=== PATIENT | female | born 1995 | race Caucasian/White ===

== ENCOUNTER 2022-02-01 15:47 | Emergency (ER) | payer BC ==
[~2022-02-01] VITALS: Ht 154.9 cm; Wt 70.5 kg
[2022-02-01] MEDS ORDERED: ondansetron/PF 4mg/2ml inj IV ONE (17:35)
[2022-02-01] MEDS ORDERED: LIDOcaine Viscous 15ml cup MM ONE (17:35)
[2022-02-01] MEDS ORDERED: famotidine/PF 10 mg/ml inj IV ONE (17:35)
[2022-02-01] MEDS ORDERED: normal saline 1000ml 1,000 ML IV ONE (17:35)
[2022-02-01] MEDS ORDERED: mag hydrox/Alum hydrox/simeth 30ml oral suspension PO ONE (17:35)
[2022-02-01] MEDS ORDERED: pantoprazole 40 MG vial IV ONE ×3 (17:35→18:35)
[2022-02-01 17:55] LABS: BASOPHILS % (AUTO) 0.4 % (0-1); EOSINOPHILS # (AUTO) 0.1 X10'3 (0-0.9); EOSINOPHILS % (AUTO) 1.4 % (0-6); HEMOGLOBIN 14.6 g/dl (12.0-16.0); LYMPHOCYTES # (AUTO) 2.1 X10'3 (1.1-4.8); LYMPHOCYTES % (AUTO) 23.1 % (21-51); MEAN CORPUSCULAR HEMOGLOBIN 30.9 PG (27.0-31.0); MEAN CORPUSCULAR HGB CONC 33.1 g/dL (33.0-36.5); MEAN CORPUSCULAR VOLUME 93.3 FL (78-98); MEAN PLATELET VOLUME 7.6 FL (7.4-10.4); MONOCYTES # (AUTO) 0.5 X10'3 (0-0.9); MONOCYTES % (AUTO) 5.1 % (2-12); NEUTROPHILS # (AUTO) 6.4 X10'3 (1.8-7.7); PLATELET COUNT 330 X10'3 (140-440); RED BLOOD COUNT 4.72 X10'6 (4.20-5.60); RED CELL DISTRIBUTION WIDTH 12.1 % (11.5-14.5); WHITE BLOOD COUNT 9.1 X10'3 (4.5-11.0)
[2022-02-01 17:57] LABS: ALANINE AMINOTRANSFERASE 31 U/L (12-78); ALBUMIN 4.6 G/DL (3.4-5.0); ALBUMIN/GLOBULIN RATIO 1.3 (1.1-1.5); ALKALINE PHOSPHATASE 104 IU/L (46-116); ANION GAP 11 (8-16); ASPARTATE AMINO TRANSFERASE 19 U/L (10-37); BILIRUBIN,TOTAL 0.3 MG/DL (0.1-1.0); BLOOD UREA NITROGEN 11 MG/DL (7-18); BUN/CREATININE RATIO 12.4 (6.6-38.0); CALCIUM 9.2 MG/DL (8.5-10.1); CHLORIDE 106 MMOL/L (99-107); CREATININE 0.89 MG/DL (0.40-0.90); GLUCOSE 94 MG/DL (70-104); LIPASE 118 U/L (73-393); SODIUM 140 MMOL/L (135-145); TOTAL CARBON DIOXIDE 23.4 MMOL/L (24-32); TOTAL PROTEIN 8.2 G/DL (6.4-8.2); eGFR 76 ML/MIN
[2022-02-01] MEDS ORDERED: pantoprazole 40 MG/NS 100ML add-vantage BAG IV ONE (18:25)
[2022-02-01] MEDS ORDERED: pantoprazole 40MG/NS 100ML BAG 100 ML IV ONE (18:30)
[2022-02-01 18:38] VITALS: BP 110/61
[2022-02-01] MEDS ORDERED: PANT-47 PO (18:39)
[2022-02-01] MEDS ORDERED: ONDA4TAB12 PO (18:39)
== END 2022-02-01 19:10 | disposition home or self-care (01) ==
LOC: VAS 15:48
DX: K29.00 Acute gastritis without bleeding (principal)
CPT/HCPCS: 36415; 80053; 83690; 85025; 96361; 96374; 96375; 99284; C9113; J2405; J3490; J7030

== ENCOUNTER 2022-12-17 14:34 | Emergency (ER) | payer BC ==
[~2022-12-17] VITALS: Ht 157.5 cm; Wt 66.4 kg
[~2022-12-17 14:34] MED LIST: ONDA4TAB12 PO; PANT-47 PO
[2022-12-17 15:06] LABS: BASOPHILS % (AUTO) 0.5 % (0-1); EOSINOPHILS % (AUTO) 0.7 % (0-6); HEMATOCRIT 42.4 % (35.0-45.0); HEMOGLOBIN 14.3 g/dl (12.0-16.0); LYMPHOCYTES % (AUTO) 16.6 % (21-51); MEAN CORPUSCULAR HGB CONC 33.8 g/dL (33.0-36.5); MEAN CORPUSCULAR VOLUME 94.8 FL (78-98); MEAN PLATELET VOLUME 8.3 FL (7.4-10.4); MONOCYTES # (AUTO) 0.4 X10'3 (0-0.9); MONOCYTES % (AUTO) 6.9 % (2-12); NEUTROPHILS # (AUTO) 4.5 X10'3 (1.8-7.7); NEUTROPHILS % (AUTO) 75.3 % (42-75); PLATELET COUNT 254 X10'3 (140-440); RED BLOOD COUNT 4.48 X10'6 (4.20-5.60); RED CELL DISTRIBUTION WIDTH 12.5 % (11.5-14.5)
[2022-12-17 15:10] LABS: CLARITY,URINE CLOUDY (Clear); COLOR,URINE YELLOW (Yellow); GLUCOSE, URINE NEGATIVE (Neg); KETONES,URINE NEGATIVE (Neg); LEUKOCYTE ESTERASE ,URINE NEGATIVE (Neg); NITRITES, URINE NEGATIVE (Neg); OCCULT BLOOD,URINE NEGATIVE (Neg); PH,URINE 7.5 (4.8-8.0); PROTEIN,URINE NEGATIVE (Neg); URINE HCG NEGATIVE (NEG); UROBILINOGEN,URINE 0.2 E.U/dL (0.2-1.0)
[2022-12-17 15:12] LABS: UA COLLECTION TYPE CLN CATCH MIDSTREAM
[2022-12-17 15:23] LABS: ALANINE AMINOTRANSFERASE 19 U/L (12-78); ALBUMIN 4.4 G/DL (3.4-5.0); ALBUMIN/GLOBULIN RATIO 1.5 (1.1-1.5); ALKALINE PHOSPHATASE 118 IU/L (46-116); ANION GAP 11 (8-16); ASPARTATE AMINO TRANSFERASE 20 U/L (10-37); BILIRUBIN,TOTAL 0.4 MG/DL (0.1-1.0); BLOOD UREA NITROGEN 9 MG/DL (7-18); BUN/CREATININE RATIO 8.5 (10.0-20.0); CHLORIDE 106 MMOL/L (99-107); CREATININE 1.06 MG/DL (0.40-0.90); GLUCOSE 101 MG/DL (70-104); LIPASE 87 U/L (73-393); SODIUM 141 MMOL/L (135-145); TOTAL CARBON DIOXIDE 24.2 MMOL/L (24-32); TOTAL PROTEIN 7.4 G/DL (6.4-8.2); eGFR 61 ML/MIN
[2022-12-17 15:34] LABS: MUCUS STRANDS FEW /LPF (Neg); SQUAMOUS EPITHELIAL CELL,UR FEW /LPF (FEW); TRANSITIONAL EPI CELLS,URINE MODERATE /HPF
[2022-12-17 15:35] LABS: AMORPHOUS PHOSPHATES 2+; BACTERIA,URINE FEW /HPF (Neg); RBC,URINE 0-2 /HPF (0-2); WBC,URINE 0-4 /HPF (0-4)
[2022-12-17] MEDS ORDERED: ONDA8TAB13 PO (18:08)
[2022-12-17] MEDS ORDERED: LIDOcaine Viscous 15ml cup MM ONE (18:10)
[2022-12-17] MEDS ORDERED: pantoprazole 40 MG vial IV ONE (18:10)
[2022-12-17] MEDS ORDERED: normal saline 1000ML IV soln IVB ONE (18:10)
[2022-12-17] MEDS ORDERED: mag hydrox/Alum hydrox/simeth 30ml oral suspension PO ONE (18:10)
[2022-12-17] MEDS ORDERED: LORazepam 2 mg/ml vial IV ONE (18:10)
[2022-12-17] MEDS ORDERED: ondansetron/PF 4mg/2ml inj IV ONE (18:10)
[2022-12-17] MEDS ORDERED: pantoprazole 40MG/NS 100ML BAG 100 ML IV ONE (18:50)
[2022-12-17 19:30] VITALS: BP 104/73
== END 2022-12-17 21:22 | disposition home or self-care (01) ==
LOC: ER 14:34
DX: K52.9 Noninfective gastroenteritis and colitis, unspecified (principal); K31.84 Gastroparesis; E86.0 Dehydration; K21.9 Gastro-esophageal reflux disease without esophagitis
CPT/HCPCS: 36415; 80053; 81001; 81025; 83690; 85025; 96365; 96375; 99284; C9113; J2060; J2405; J7030

== ENCOUNTER 2022-12-22 11:57 | Emergency (ER) | payer BC ==
[~2022-12-22] VITALS: Ht 157.5 cm; Wt 63.6 kg
[~2022-12-22 11:57] MED LIST changes: +ONDA8TAB13 PO
[2022-12-22] MEDS ORDERED: normal saline 1000ML IV soln IVB ONE (14:05)
[2022-12-22] MEDS ORDERED: ondansetron/PF 4mg/2ml inj IV ONE (14:05)
[2022-12-22] MEDS ORDERED: pantoprazole 40mg Tablet.DR PO ONE (14:05)
[2022-12-22 14:27] LABS: BASOPHILS % (AUTO) 0.5 % (0-1); EOSINOPHILS % (AUTO) 0.6 % (0-6); HEMOGLOBIN 15.1 g/dl (12.0-16.0); LYMPHOCYTES # (AUTO) 1.6 X10'3 (1.1-4.8); LYMPHOCYTES % (AUTO) 23.1 % (21-51); MEAN CORPUSCULAR HEMOGLOBIN 32.6 PG (27.0-31.0); MEAN CORPUSCULAR HGB CONC 34.3 g/dL (33.0-36.5); MEAN CORPUSCULAR VOLUME 95.1 FL (78-98); MEAN PLATELET VOLUME 8.6 FL (7.4-10.4); MONOCYTES # (AUTO) 0.4 X10'3 (0-0.9); MONOCYTES % (AUTO) 5.3 % (2-12); NEUTROPHILS # (AUTO) 4.8 X10'3 (1.8-7.7); NEUTROPHILS % (AUTO) 70.5 % (42-75); PLATELET COUNT 253 X10'3 (140-440); RED BLOOD COUNT 4.62 X10'6 (4.20-5.60); RED CELL DISTRIBUTION WIDTH 12.5 % (11.5-14.5); WHITE BLOOD COUNT 6.9 X10'3 (4.5-11.0)
[2022-12-22 14:34] LABS: ALANINE AMINOTRANSFERASE 25 U/L (12-78); ALBUMIN 4.8 G/DL (3.4-5.0); ALBUMIN/GLOBULIN RATIO 1.5 (1.1-1.5); ALKALINE PHOSPHATASE 127 IU/L (46-116); ANION GAP 13 (8-16); ASPARTATE AMINO TRANSFERASE 25 U/L (10-37); BILIRUBIN,TOTAL 0.4 MG/DL (0.1-1.0); BLOOD UREA NITROGEN 12 MG/DL (7-18); BUN/CREATININE RATIO 11.4 (10.0-20.0); CALCIUM 9.5 MG/DL (8.5-10.1); CHLORIDE 104 MMOL/L (99-107); CREATININE 1.05 MG/DL (0.40-0.90); GLUCOSE 103 MG/DL (70-104); SODIUM 138 MMOL/L (135-145); TOTAL CARBON DIOXIDE 21.2 MMOL/L (24-32); TOTAL PROTEIN 7.9 G/DL (6.4-8.2); eGFR 62 ML/MIN
--- NOTE | 2022-12-22 15:33 | NUR ---
RN EDUCATED PT WHEN SHE IS ABLE TO URINATE TO NOTIFY THE RN SO THAT URINE MAY BE COLLECTED.
[2022-12-22 16:10] LABS: URINE HCG NEGATIVE (NEG)
--- NOTE | 2022-12-22 16:10 | NUR ---
RN PROVIDED CRACKERS AND WATER FOR ABRAHAM MCCRACKEN.
[2022-12-22 16:38] LABS: CLARITY,URINE SLIGHTLY CLOUDY (Clear); COLOR,URINE YELLOW (Yellow); GLUCOSE, URINE NEGATIVE (Neg); KETONES,URINE NEGATIVE (Neg); LEUKOCYTE ESTERASE ,URINE NEGATIVE (Neg); NITRITES, URINE NEGATIVE (Neg); OCCULT BLOOD,URINE NEGATIVE (Neg); PROTEIN,URINE NEGATIVE (Neg); UROBILINOGEN,URINE 0.2 E.U/dL (0.2-1.0)
[2022-12-22 16:41] LABS: UA COLLECTION TYPE CLN CATCH MIDSTREAM
[2022-12-22 16:50] LABS: SQUAMOUS EPITHELIAL CELL,UR MANY /LPF (FEW)
[2022-12-22 16:52] LABS: BACTERIA,URINE 2+ /HPF (Neg); RBC,URINE NONE SEEN /HPF (0-2); WBC,URINE 0-4 /HPF (0-4)
[2022-12-22] MEDS ORDERED: haloperidol lactate 5mg/ml inj IM ONE (17:10)
[2022-12-22] MEDS ORDERED: digoxin 250mcg/ml 2ml ampule IV ONE (17:30)
--- NOTE | 2022-12-22 17:30 | NUR ---
Francisco starr in [facility] - 12/22/22 at [address] LUIS MANUEL ALEXANDER TO ORD AND ADMIN 0.25 MG OF DIGOXIN IV ONCE.
--- NOTE | 2022-12-22 17:34 | NUR ---
CATHERINE ORD DIGOXIN FOR WRONG PT. ORD CXL.
[2022-12-22] MEDS ORDERED: mag hydrox/Alum hydrox/simeth 30ml oral suspension PO ONE (18:20)
[2022-12-22 18:33] VITALS: BP 106/72
== END 2022-12-22 18:36 | disposition home or self-care (01) ==
LOC: ER 11:58
DX: R11.15 Cyclical vomiting syndrome unrelated to migraine (principal); K21.9 Gastro-esophageal reflux disease without esophagitis; Z79.899 Other long term (current) drug therapy
CPT/HCPCS: 36415; 80053; 81001; 81025; 85025; 96361; 96372; 96374; 99284; J1630; J2405; J7030

== ENCOUNTER 2023-02-16 18:52 | Emergency (ER) | payer BC ==
[~2023-02-16] VITALS: Ht 157.5 cm; Wt 63.6 kg
[2023-02-16 20:13] LABS: URINE HCG NEGATIVE (NEG)
[2023-02-16 20:15] LABS: CLARITY,URINE CLEAR (Clear); COLOR,URINE ORANGE (Yellow)
[2023-02-16 20:23] LABS: BACTERIA,URINE 4+ /HPF (Neg); RBC,URINE 0-2 /HPF (0-2); SQUAMOUS EPITHELIAL CELL,UR MANY /LPF (FEW); WBC,URINE 0-4 /HPF (0-4)
[2023-02-16 20:24] LABS: MUCUS STRANDS MANY /LPF (Neg)
[2023-02-16 20:27] LABS: BASOPHILS % (AUTO) 0.4 % (0-1); EOSINOPHILS # (AUTO) 0.1 X10'3 (0-0.9); EOSINOPHILS % (AUTO) 1.4 % (0-6); HEMATOCRIT 39.7 % (35.0-45.0); HEMOGLOBIN 13.4 g/dl (12.0-16.0); LYMPHOCYTES # (AUTO) 1.9 X10'3 (1.1-4.8); LYMPHOCYTES % (AUTO) 26.7 % (21-51); MEAN CORPUSCULAR HEMOGLOBIN 32.5 PG (27.0-31.0); MEAN CORPUSCULAR HGB CONC 33.9 g/dL (33.0-36.5); MEAN CORPUSCULAR VOLUME 95.9 FL (78-98); MEAN PLATELET VOLUME 8.3 FL (7.4-10.4); MONOCYTES # (AUTO) 0.4 X10'3 (0-0.9); MONOCYTES % (AUTO) 5.1 % (2-12); NEUTROPHILS # (AUTO) 4.7 X10'3 (1.8-7.7); NEUTROPHILS % (AUTO) 66.4 % (42-75); PLATELET COUNT 258 X10'3 (140-440); RED BLOOD COUNT 4.14 X10'6 (4.20-5.60); RED CELL DISTRIBUTION WIDTH 12.6 % (11.5-14.5); WHITE BLOOD COUNT 7.1 X10'3 (4.5-11.0)
[2023-02-16 20:28] LABS: UA COLLECTION TYPE CLN CATCH MIDSTREAM
[2023-02-16 20:48] LABS: ALANINE AMINOTRANSFERASE 18 U/L (12-78); ALBUMIN 4.2 G/DL (3.4-5.0); ALBUMIN/GLOBULIN RATIO 1.3 (1.1-1.5); ALKALINE PHOSPHATASE 129 IU/L (46-116); ANION GAP 10 (8-16); ASPARTATE AMINO TRANSFERASE 16 U/L (10-37); BILIRUBIN,TOTAL 0.3 MG/DL (0.1-1.0); BLOOD UREA NITROGEN 10 MG/DL (7-18); BUN/CREATININE RATIO 10.3 (10.0-20.0); CHLORIDE 107 MMOL/L (99-107); CREATININE 0.97 MG/DL (0.40-0.90); GLUCOSE 92 MG/DL (70-104); SODIUM 139 MMOL/L (135-145); TOTAL CARBON DIOXIDE 22.3 MMOL/L (24-32); TOTAL PROTEIN 7.4 G/DL (6.4-8.2); eGFR 68 ML/MIN
[2023-02-16] MEDS ORDERED: normal saline 1000ML IV soln IVB ONE (23:00)
[2023-02-16] MEDS ORDERED: ketorolac trometh. 30mg/ml inj. IV ONE (23:00)
[2023-02-16] MEDS ORDERED: ondansetron/PF 4mg/2ml inj IV ONE (23:00)
[2023-02-16 23:37] LABS: URINE AMPHETAMINE SCREEN NEGATIVE (Neg); URINE BARBITUATE SCREEN NEGATIVE (Neg); URINE BENZODIAZEPINES SCREEN NEGATIVE (Neg); URINE CANNABINOID SCREEN NEGATIVE (Neg); URINE COCAINE SCREEN NEGATIVE (Neg); URINE METHADONE SCREEN NEGATIVE (Neg); URINE OPIATE SCREEN POSITIVE (Neg); URINE PHENCYCLIDINE SCREEN NEGATIVE (Neg)
[2023-02-16] MEDS ORDERED: ONDA4TAB12 PO (23:47)
[2023-02-17 00:35] VITALS: BP 115/75
== END 2023-02-17 00:37 | disposition home or self-care (01) ==
LOC: ER 18:53
DX: N39.0 Urinary tract infection, site not specified (principal); R11.2 Nausea with vomiting, unspecified; G43.909 Migraine, unspecified, not intractable, without status migrainosus; K21.9 Gastro-esophageal reflux disease without esophagitis; F12.10 Cannabis abuse, uncomplicated; Z79.899 Other long term (current) drug therapy
CPT/HCPCS: 36415; 80053; 80305; 81001; 81025; 85025; 96361; 96374; 96375; 99284; J1885; J2405; J7030

== ENCOUNTER 2023-11-01 18:25 | Emergency (ER) | payer BC ==
[~2023-11-01] VITALS: Ht 157.5 cm; Wt 61.0 kg
[2023-11-01 18:32] VITALS: TEMP 99
[2023-11-01 19:04] LABS: BILIRUBIN,URINE NEGATIVE (Neg); CLARITY,URINE SLIGHTLY CLOUDY (Clear); COLOR,URINE YELLOW (Yellow); GLUCOSE, URINE NEGATIVE (Neg); KETONES,URINE NEGATIVE (Neg); LEUKOCYTE ESTERASE ,URINE NEGATIVE (Neg); NITRITES, URINE NEGATIVE (Neg); OCCULT BLOOD,URINE NEGATIVE (Neg); PROTEIN,URINE NEGATIVE (Neg)
[2023-11-01 19:05] LABS: PREOP URINE HCG NEGATIVE (NEGATIVE)
[2023-11-01] MEDS ORDERED: iohexol 300mg/ml 100ml inj. ONE (19:32)
[2023-11-01] MEDS: ondansetron/PF 4mg/2ml inj IV ONE ×2 (20:01→21:39)
[2023-11-01] MEDS: morphine 4 MG/ML inj SYRINge IV ONE (20:02)
[2023-11-01] MEDS: normal saline 1000ML IV soln IVB ONE (20:02)
[2023-11-01 20:13] LABS: ALANINE AMINOTRANSFERASE 14 U/L (12-78); ALBUMIN/GLOBULIN RATIO 1.3 (1.1-1.5); ALKALINE PHOSPHATASE 104 IU/L (46-116); ANION GAP 11 (8-16); ASPARTATE AMINO TRANSFERASE 15 U/L (10-37); BILIRUBIN,TOTAL 0.3 MG/DL (0.1-1.0); BLOOD UREA NITROGEN 9 MG/DL (7-18); BUN/CREATININE RATIO 7.7 (10.0-20.0); CALCIUM 8.6 MG/DL (8.5-10.1); CHLORIDE 107 MMOL/L (99-107); CREATININE 1.17 MG/DL (0.40-0.90); GLUCOSE 100 MG/DL (70-104); POTASSIUM 3.7 MMOL/L (3.5-5.1); SODIUM 141 MMOL/L (135-145); TOTAL CARBON DIOXIDE 23.1 MMOL/L (24-32); TOTAL PROTEIN 7.1 G/DL (6.4-8.2); eCRCL 56 ML/MIN; eGFR 54 ML/MIN
[2023-11-01] MEDS: HYDROmorphone 1 mg/ml syringe IV ONE ×2 (21:40→22:50)
[2023-11-01 22:08] LABS: UA COLLECTION TYPE CLN CATCH MIDSTREAM
[2023-11-01 22:13] LABS: RBC,URINE NONE SEEN /HPF (0-2); WBC,URINE 0-4 /HPF (0-4)
[2023-11-01 22:14] LABS: BACTERIA,URINE FEW /HPF (Neg); MUCUS STRANDS NONE SEEN /LPF (Neg); SQUAMOUS EPITHELIAL CELL,UR MODERATE /LPF (FEW)
[2023-11-01 22:15] LABS: AMORPHOUS PHOSPHATES 1+
[2023-11-01 22:53] LABS: MEAN PLATELET VOLUME 9.1 FL (7.4-10.4)
[2023-11-01 22:56] LABS: BASOPHILS # (AUTO) 0.1 X10'3 (0-0.2); BASOPHILS % (AUTO) 0.9 % (0-1); EOSINOPHILS # (AUTO) 0.1 X10'3 (0-0.9); EOSINOPHILS % (AUTO) 2.4 % (0-6); HEMATOCRIT 41.4 % (35.0-45.0); LYMPHOCYTES # (AUTO) 2.3 X10'3 (1.1-4.8); LYMPHOCYTES % (AUTO) 37.9 % (21-51); MEAN CORPUSCULAR HEMOGLOBIN 31.8 PG (27.0-31.0); MEAN CORPUSCULAR HGB CONC 33.8 g/dL (33.0-36.5); MEAN CORPUSCULAR VOLUME 94.1 FL (78-98); MONOCYTES # (AUTO) 0.5 X10'3 (0-0.9); MONOCYTES % (AUTO) 8.7 % (2-12); NEUTROPHILS % (AUTO) 50.1 % (42-75); PLATELET COUNT 221 X10'3 (140-440); RED CELL DISTRIBUTION WIDTH 12.8 % (11.5-14.5); WHITE BLOOD COUNT 5.9 X10'3 (4.5-11.0)
[2023-11-01] MEDS ORDERED: LAMO200T10 PO (22:57)
[2023-11-01] MEDS ORDERED: DULO30CA52 PO (22:57)
[2023-11-01] MEDS ORDERED: ZIPR60CA7 PO (22:57)
[2023-11-01] MEDS ORDERED: OXCA300T16 PO (22:57)
[2023-11-01] MEDS ORDERED: TOPI-95 PO (22:57)
[2023-11-01] MEDS ORDERED: CLON0.1T2 PO (22:57)
[2023-11-01] MEDS ORDERED: METH10CP PO (22:57)
[2023-11-01] MEDS ORDERED: HYDR-3686 PO (22:57)
[2023-11-01] MEDS ORDERED: OMEP20CA16 PO (22:59)
[2023-11-01 23:16] VITALS: BP 115/73
[2023-11-02] MEDS ORDERED: HYDROcodone/acetaminophen 10/325mg tab PO ONE (01:40)
[2023-11-02] MEDS: HYDROcodone/acetaminophen 10/325mg tab PO ONE (01:45)
[2023-11-02 01:53] VITALS: PULSE 65; RESP 16; O2SAT 98
== END 2023-11-02 01:57 | disposition home or self-care (01) ==
LOC: ER 18:26
DX: D36.9 Benign neoplasm, unspecified site (principal); G43.909 Migraine, unspecified, not intractable, without status migrainosus; F12.90 Cannabis use, unspecified, uncomplicated; Z72.89 Other problems related to lifestyle; Z79.899 Other long term (current) drug therapy; Z79.2 Long term (current) use of antibiotics
CPT/HCPCS: 36415; 74177; 76830; 76856; 80053; 81001; 81025; 85025; 93976; 96361; 96374; 96375; 96376; 99285; J1170; J2270; J2405; J3490; J7030; Q9967